=== PATIENT | female | born 1945 | race Caucasian/White ===

== ENCOUNTER 2025-02-03 15:00 | Emergency (ER) | payer MEDICARE, OTHER ==
[~2025-02-03] VITALS: Ht 154.9 cm; Wt 47.6 kg
[2025-02-03 15:13] VITALS: BP 146/88
[2025-02-03 16:42] VITALS: BP 146/88; O2SAT 98
== END 2025-02-03 16:43 | disposition home or self-care (01) ==
LOC: ER 15:13
DX: S06.0XAA Concussion with loss of consciousness status unknown, initial encounter (principal); S89.91XA Unspecified injury of right lower leg, initial encounter; G51.0 Bell's palsy; K58.9 Irritable bowel syndrome, unspecified; Z88.1 Allergy status to other antibiotic agents; W19.XXXA Unspecified fall, initial encounter; Y92.000 Kitchen of unspecified non-institutional (private) residence as the place of occurrence of the external cause; Y93.89 Activity, other specified; Y99.8 Other external cause status
CPT/HCPCS: 70450; 72125; A4606; A4663